=== PATIENT | male | born 1975 | race American Indian/Alaskan Native ===

== ENCOUNTER 2025-03-05 10:05 | Emergency (ER) | payer MEDICAID, SELFPAY ==
[2025-03-05 10:43] VITALS: BP 135/91; PULSE 76; RESP 17; TEMP 36.5; O2SAT 98; BMI 25.1
[2025-03-05] MEDS: HYDROcodone/APAP 5/325 TABLET 1 TAB PO (11:21)
[2025-03-05] MEDS: KETOROLAC INJ 30 MG/ML VIAL IM (11:21)
--- NOTE | 2025-03-05 14:23 | EDNOTE_ITS ---
ED Dental RME/HPI General Chief complaint: Dental/Oral/Throat Stated complaint: Throat pain, poss. puss pocket Time Seen by Provider: 03/05/25 10:51 Arrival date/time: 03/05/25 10:05 Limitations: no limitations RME / HPI RME / HPI Narrative: 49-year-old male sent over from PCP for evaluation of left neck lump. States was told he has an abscess and may need drainage. He is a smoker reports marijuana only. And started having some bothersome sensation for a few days. Now looks in his throat and there is pus on one side and enlargement. Able to swallow and speak but states earlier had episode where he felt like could not breathe and he was choking. Was not given any medicines and was sent here from PCP. No history of IV drug use no diabetes Related Data Previous Rx's ?Medication ?Instructions ?Recorded hydrocodone 5 mg-acetaminophen 325 1 tab PO BID PRN pa in 7 days #14 03/05/25 mg tablet tabs lidocaine HCl 2 % mucosal solution 5 ml PO BID 7 days #100 mL 03/05/25 (Lidocaine Viscous) penicillin V potassium 500 mg 500 mg PO QID 10 days #4 0 tabs 03/05/25 tablet prednisone 20 mg tablet 60 mg PO QDAY 3 days #9 tabs 03/05/25 Allergies Allergy/AdvReac Type Severity Reaction Status Date / Time No Known Allergies Allergy Verified 03/05/25 10:09 Review of Systems Review of Systems Systems Reviewed: All systems reviewed, normal except as documented Constitutional Constitutional: Denies fever(s) ENT Ears, Nose, Mouth, and Throat: Reports as per HPI ED Exam General Limitations: Present no limitations General appearance: Present alert and in no apparent distress Head Head exam: Present atraumatic Eye Eye exam: Present normal appearance, PERRL and EOMI ENT ENT exam: Present mucous membranes moist, TM's normal bilaterally and other (Right tonsil within normal limits, left tonsil with exudates and obvious peritonsillar abscess formation to the left however adequate airway maintained. Patient speaking in full sentences no stridor) Neck Neck exam: Present normal inspection, full ROM and trachea midline Chest Chest inspection: Present normal inspection and symmetric chest wall rise Respiratory Respiratory exam: Present normal lung sounds bilaterally Cardiovascular Cardiovascular exam: Present regular rate, normal rhythm and normal heart sounds Extremities Exam Extremities exam: Present normal inspection and full ROM Back Exam Back exam: Present normal inspection and full ROM Psychiatric Psychiatric exam: Present normal affect and normal mood Skin Skin exam: Present warm, dry, intact and normal color Course Quality Measures none Orders Category Date Time Status HYDROcodone*/APAP 5/325 [[place] 5/325] Med 03/05/25 11:07 Discontinued 1 tab PO X1 ONE Ketorolac Inj [Toradol Inj] Med 03/05/25 11:07 Discontinued 30 mg IM X1 ONE PEN G MILA (Bicillin LA) [Bicillin La Inj] Med 03/05/25 11:07 Discontinued 1,200,000 unit IM X1 ONE dexAMETHasone INJ [Decadron Inj] Med 03/05/25 11:07 Discontinued 10 mg PO X1 ONE Vital Signs Vital signs: Vital Signs Temperature 97.7 F 03/05/25 10:43 Pulse Rate 76 03/05/25 10:43 Respiratory Rate 17 03/05/25 10:43 Blood Pressure 135/91 H 03/05/25 10:43 Pulse Oximetry (%) 98 03/05/25 10:43 Oxygen Delivery Method Room Air 03/05/25 10:43 Dental / Oral MDM Narrative MDM Narrative:: Although there was a peritonsillar abscess noted patient has adequate airway and speaking in full sentences and able to eat for that reason was treated with medicine advised in 2 days if still persistent should return for incision and drainage. Return to ER symptoms worsen prior to that Patient data External records reviewed:: [facility] previous records Clinical information provided by:: patient and family Social determinants that could affect healthcare access:: other (specify) (Sent over by PCP) Patient has the following chronic illnesses:: None How is presenting disease/condition affected by chronic disease/condition?: no chronic disease Evaluation data The following diagnostics were reviewed and interpreted by me:: other (specify) (None) Lab and/or radiology exams considered but not ordered:: CT of neck was considered however unlikely to change the course of treatment due to adequate airway and speaking full sentences Interpretation Summary: None Medications / Prescriptions Medications or Prescriptions considered but not ordered:: All meds considered were sent Medication administrations:: Medication Administration History Discontinued Medications Hydrocodone Bitart/Acetaminophen (Hydrocodone/Apap 5/325 Tablet) 1 tab PO X1 ONE Stop: 03/05/25 11:08 Last Admin: 03/05/25 11:21 Dose: 1 tab Documented By: LILLIAN Dexamethasone Sodium Phosphate (Dexamethasone Sod Phos Inj 10 Mg/Ml Vial) 10 mg PO X1 ONE Stop: 03/05/25 11:08 Last Admin: 03/05/25 11:20 Dose: 10 mg Documented By: LILLIAN Comments: po per orders Ketorolac Tromethamine (Ketorolac Inj 30 Mg/Ml Vial) 30 mg IM X1 ONE Stop: 03/05/25 11:08 Last Admin: 03/05/25 11:21 Dose: 30 mg Documented By: LILLIAN Penicillin G Benzathine (Pen G Mila (Bicillin La) 1,200,000 Unit/2 Ml Syringe) 1,200,000 unit IM X1 ONE Stop: 03/05/25 11:08 Last Admin: 03/05/25 11:49 Dose: 1,200,000 unit Documented By: LILLIAN Comments: medication brought by pharmacist See above Consultations Consultation(s) initiated? (list below): No Diagnosis Dental Differential Diagnosis: gingival abscess, dental caries and other (Peritonsillar abscess, neck mass) Most likely diagnosis given after review of the tests above:: Left peritonsillar abscess Admission Indicated Admission indicated?: not indicated Admission Request Was there a request for admission?: No Disposition Plan Disposition Plan: Discharge Discharge Attestation Discharge Attestation: The patient and all family members were given an opportunity to ask questions and understood the discharge instructions. Discharge instructions specifically effects, indications for sooner follow up or return to the emergency department, and the expected course of current diagnosis. Patient condition: Stable Discharge Plan Plan Patient Disposition: HOME (Self Care) Discharge Disposition comment: Follow-up with PCP in 2 to 3 days Prescriptions/Referrals Prescriptions/Med Rec: New hydrocodone-acetaminophen 5-325 mg tablet 1 tab PO BID MDD 2 PRN (Reason: pain) 7 Days Qty: 14 0RF prednisone 20 mg tablet 60 mg PO QDAY 3 Days Qty: 9 0RF Taper: Prednisone Taper 20 mg DAILY for 2 Days and 0 Hour 10 mg DAILY for 2 Days and 0 Hour 5 mg DAILY for 7 Days and 0 Hour penicillin V potassium 500 mg tablet 500 mg PO QID 10 Days Qty: 40 0RF lidocaine HCl [Lidocaine Viscous] 2 % solution 5 ml PO BID 7 Days Qty: 100 0RF Problem List Clinical Impression: Abscess, peritonsillar, Marijuana smoker in remission Patient/Caregiver Discharge Instructions Education Materials: ED Peritonsillar Abscess Print Language: German Stand Alone Forms: [facility] Award Info., Patient Portal Info Letter PA/[facility] Supervising Physician PA/[facility] Supervising Physician: Dr. Jacques
== END 2025-03-05 11:53 | disposition home or self-care (01) ==
LOC: SERX 12:18
PROVIDERS: Emergency Provider Emergency Medicine
DX: J36 Peritonsillar abscess (principal); F12.11 Cannabis abuse, in remission
CPT/HCPCS: 96372; 99282; J0561; J1100; J1885; A9270